=== PATIENT | male | born 1995 | race Caucasian/White ===

== ENCOUNTER → 2016-10-13 | Outpatient (CLI) | payer BC, OTHER ==
--- NOTE | 2016-10-13 18:09 | DIAGNOSTIC IMAGING REPORT ---
ULTRASOUND LEFT VENOUS DOPP LOWER EXT UNILAT CLINICAL HISTORY: L CALF SWELLING COMPARISON STUDY: No previous studies for comparison. FINDINGS: Real-time and color flow Doppler imaging were performed. Flow was seen within the femoral, popliteal and calf veins with no intraluminal thrombus demonstrated. The saphenous vein is patent. IMPRESSION: No evidence of left lower extremity DVT. Electronically signed by: Lowell Layton M.D. 10/13/2016 6:08 PM Dictated Date/Time: 10/13/2016 6:07 PM
== END | disposition home or self-care (01) ==
LOC: C.ULTR 17:33
PROVIDERS: ATTEND Physical Medicine & Rehabilitation
DX: M25.562 Pain in left knee (principal); M79.89 Other specified soft tissue disorders